=== PATIENT | male | born 1955 | race Caucasian/White ===

== ENCOUNTER 2020-04-15 06:02 | Inpatient (IN) | payer OTHER ==
[~2020-04-15] VITALS: Ht 177.8 cm; Wt 105.5 kg
[2020-04-15] MEDS ORDERED: Voltaren100 GM TOP (06:38)
[2020-04-15] MEDS ORDERED: OMEP20ER (06:38)
[2020-04-15] MEDS ORDERED: PROP10 PO (06:39)
[2020-04-15 06:49] LABS: BASOPHILS ABSOLUTE AUTO 0.07 K/mm3 (0.00-0.23); BASOPHILS PERCENT AUTO 1 % (0-2); EOSINOPHILS ABSOLUTE AUTO 0.06 K/mm3 (0.00-0.68); EOSINOPHILS PERCENT AUTO 1 % (0-6); Hematocrit 37.3 % (37.0-53.0); Hemoglobin 11.9 g/dL (13.5-17.5); IMMATURE GRAN ABSOLUTE AUTO 0.02 K/mm3 (0.00-0.10); IMMATURE GRAN PERCENT AUTO 0 % (0-1); LYMPHOCYTES ABSOLUTE AUTO 1.12 K/mm3 (0.84-5.20); LYMPHOCYTES PERCENT AUTO 19 % (21-46); MONOCYTES ABSOLUTE AUTO 0.68 K/mm3 (0.16-1.47); MONOCYTES PERCENT AUTO 11 % (4-13); Mean Corpuscular HGB 30.1 pg (26.0-34.0); Mean Corpuscular HGB Conc 31.9 g/dL (31.5-36.5); Mean Corpuscular Volume 94 fL (80-100); NEUTROPHILS ABSOLUTE AUTO 4.05 K/mm3 (1.96-9.15); NEUTROPHILS PERCENT AUTO 68 % (41-73); RDW Coefficient Variation 16.6 % (11.7-14.2); RDW Standard Deviation 57.8 fL (35.1-46.3); Red Blood Cell Count 3.95 M/mm3 (4.30-5.90)
[2020-04-15 06:59] LABS: Alanine Aminotransfer (ALT/SGP 28 U/L (12-78); Albumin, Blood 2.4 g/dL (3.4-5.0); Albumin/Globulin Ratio 0.5 (0.8-1.8); Alk Phos 114 U/L (50-136); Anion Gap 6 mmol/L (6-16); Aspartate Aminotrans (AST/SGOT 40 U/L (12-37); Bilirubin, Total 4.3 mg/dL (0.1-1.0); Blood Urea Nitrogen 23 mg/dL (8-24); Bun/Creatinine Ratio 42.4 (12.0-20.0); CO2, Blood 23 mmol/L (21-32); Calcium, Blood 8.7 mg/dL (8.5-10.1); Chloride, Blood 107 mmol/L (98-108); Creatinine, Blood 0.54 mg/dL (0.60-1.20); Glomerular Filtration Rate >60 (60-); Glucose, Blood 155 mg/dL (70-99); Potassium, Blood 4.2 mmol/L (3.5-5.5); Sodium, Blood 136 mmol/L (136-145); Total Protein, Blood 7.4 g/dL (6.4-8.2)
[2020-04-15 07:02] LABS: International Normalized Ratio 1.32; Prothrombin Time Results 13.9 Sec (9.7-11.5)
[2020-04-15 07:09] LABS: Platelet Count 74 K/mm3 (150-400)
[2020-04-15 12:58] LABS: Hematocrit 35.3 % (37.0-53.0)
--- NOTE | 2020-04-15 14:25 | NUR ---
PT TRANSFERED TO [facility] VIA GURNEY FROM [facility]. History, Chart, Medications and Allergies reviewed before start of procedure. Lungs clear T/O to Auscultation. Patient confirms NPO status and agrees with scheduled surgery. Pre-Op teaching done. Pt verbalizes understanding.
--- NOTE | 2020-04-15 15:10 | NUR ---
04/15/20 1510 BERNADETTE AREVALO History, Chart, Medications and Allergies reviewed before start of procedure. 3-LEAD EKG REVIEWED WITH PHYSICIAN PRIOR TO START OF PROCEDURE. O2 VIA N/C INTACT THROUGHOUT SEDATION/PROCEDURE. MONITOR INTACT WITH CONTINUOUS PULSE OXIMETRY AND INTERMITTENT BP. MAC WITH DR. LINDER.
--- NOTE | 2020-04-15 17:11 | NUR ---
[id number] REPORT CALL RECIEVED FROM BRIJESH CERVANTES FROM MED FLOOR. [employer] ATTENDED PT TO ICU-9. PT WAS A/O. DENIED PAIN, HAS NOT HAD ANY BLEEDING VIA EMESIS OR STOOL NOTED IN HOSP. PT STATES HE HAS HAD THIS SENCE 3 DAYS AGO AND CAME TO HOSP THIS EARLY AM. PT IS NOT HAVING PAIN, SOB, AND VS ARE STABLE. NS IN 125ML, OCTRIITIDE 25ML, PROTONIX 10ML. PT IS CALM AND RESTING WITH FAMILY IN ROOM. BOWEL TONES ARE HYPERACTIVE, AND LUNGS ARE CLEAR. PT AWARE OF NPO STATUS. WILL MONITOR.
--- NOTE | 2020-04-15 18:46 | NUR ---
PT IS TAKING GLASSES AND CELL PHONE. IS NOW HEADING HOME. NO STOOLING OR EMIESIS NOTED. VSS. REPORT CALLED TO ELIEZER CERVANTES AND ETA APPROX 90 MIN. PT CONT TO DENIE PAIN OR DISTRESS. TRANSPORT HAVE ARRIVED AND WILL REPORT TO PARAMETICS.
--- NOTE | 2020-04-15 19:09 | NUR ---
190 EMT REPORT GIVEN PER [place] RN AND PT TO AMBULANCE.
== END 2020-04-15 19:08 | disposition short-term general hospital (02) | DRG 300 ==
LOC: ER 06:02 → MEDS 09:38 → ICUW 15:56
PROVIDERS: Emergency Medicine; Internal Medicine Gastroenterology; ADMIT Internal Medicine
PROC: 0DJ08ZZ Inspection of Upper Intestinal Tract, Via Natural or Artificial Opening Endoscopic (ICD-10-PCS; principal; 2020-04-15 10:15)
DX: I86.4 Gastric varices (principal); K76.6 Portal hypertension; K70.30 Alcoholic cirrhosis of liver without ascites; Z20.828 Contact with and (suspected) exposure to other viral communicable diseases; D64.9 Anemia, unspecified; D69.6 Thrombocytopenia, unspecified; F17.210 Nicotine dependence, cigarettes, uncomplicated
CPT/HCPCS: 36415; 80053; 85014; 85018; 85025; 85610; 85730; 86850; 86900; 86901; 93005; 93010; 96365; 96375; 96376; 99285-25; C9113; J2354; J2405; J2543; J2704; J7030; J7050; J7120; U0002

== ENCOUNTER 2020-04-23 08:03 | Emergency (ER) | payer OTHER ==
[~2020-04-23] VITALS: Ht 182.9 cm; Wt 110.2 kg
[~2020-04-23 08:03] MED LIST: OMEP20ER; PROP10 PO; Voltaren100 GM TOP
[2020-04-23 09:12] LABS: BASOPHILS ABSOLUTE AUTO 0.04 K/mm3 (0.00-0.23); BASOPHILS PERCENT AUTO 0 % (0-2); EOSINOPHILS PERCENT AUTO 1 % (0-6); Hematocrit 28.2 % (37.0-53.0); Hemoglobin 8.9 g/dL (13.5-17.5); IMMATURE GRAN ABSOLUTE AUTO 0.11 K/mm3 (0.00-0.10); IMMATURE GRAN PERCENT AUTO 1 % (0-1); LYMPHOCYTES ABSOLUTE AUTO 0.76 K/mm3 (0.84-5.20); LYMPHOCYTES PERCENT AUTO 7 % (21-46); MONOCYTES ABSOLUTE AUTO 1.33 K/mm3 (0.16-1.47); MONOCYTES PERCENT AUTO 13 % (4-13); Mean Corpuscular HGB 30.3 pg (26.0-34.0); Mean Corpuscular HGB Conc 31.6 g/dL (31.5-36.5); Mean Corpuscular Volume 96 fL (80-100); Mean Platelet Volume 14.1 fL (9.1-12.4); NEUTROPHILS ABSOLUTE AUTO 8.19 K/mm3 (1.96-9.15); NEUTROPHILS PERCENT AUTO 78 % (41-73); NRBC ABSOLUTE 0.02 K/mm3 (0.00-0.02); NRBC Auto 0.2 /100 WBC (0.0-0.2); Platelet Count 161 K/mm3 (150-400); RDW Coefficient Variation 17.7 % (11.7-14.2); RDW Standard Deviation 62.4 fL (35.1-46.3); Red Blood Cell Count 2.94 M/mm3 (4.30-5.90); White Blood Cell Count 10.53 K/mm3 (4.00-11.30)
[2020-04-23] MEDS ORDERED: ATOR20 PO (09:13)
[2020-04-23 09:14] LABS: Alanine Aminotransfer (ALT/SGP 36 U/L (12-78); Albumin, Blood 1.7 g/dL (3.4-5.0); Albumin/Globulin Ratio 0.4 (0.8-1.8); Alk Phos 196 U/L (50-136); Anion Gap 8 mmol/L (6-16); Aspartate Aminotrans (AST/SGOT 152 U/L (12-37); Bilirubin, Total 10.8 mg/dL (0.1-1.0); Blood Urea Nitrogen 16 mg/dL (8-24); CO2, Blood 22 mmol/L (21-32); Calcium, Blood 6.9 mg/dL (8.5-10.1); Chloride, Blood 105 mmol/L (98-108); Creatinine, Blood 1.07 mg/dL (0.60-1.20); Globulin, Blood 4.3 g/dL (2.2-4.0); Glomerular Filtration Rate >60 (60-); Glucose, Blood 197 mg/dL (70-99); Potassium, Blood 4.6 mmol/L (3.5-5.5); Sodium, Blood 135 mmol/L (136-145)
[2020-04-23 09:17] LABS: International Normalized Ratio 1.36; Prothrombin Time Results 14.3 Sec (9.7-11.5)
[2020-04-23] MEDS ORDERED: PROP10 PO (09:21)
[2020-04-23] MEDS ORDERED: CIPR500 PO (09:21)
[2020-04-23] MEDS ORDERED: FURO20 PO (09:21)
[2020-04-23] MEDS ORDERED: SPIR50 PO (09:22)
== END 2020-04-23 12:53 ==
LOC: ER 08:03
PROVIDERS: Emergency Medicine
DX: K92.2 Gastrointestinal hemorrhage, unspecified (principal); R57.8 Other shock; K72.90 Hepatic failure, unspecified without coma; I10 Essential (primary) hypertension; F17.210 Nicotine dependence, cigarettes, uncomplicated; Z79.899 Other long term (current) drug therapy; Z20.828 Contact with and (suspected) exposure to other viral communicable diseases
CPT/HCPCS: 71045; 76705; 80053; 82272; 85025; 85610; 85730; 86850; 86900; 86901; 86923; 92950; 93005; 93010; 99285-25; U0002